=== PATIENT | female | born 1990 | race African-American/Black ===

== ENCOUNTER 2021-07-05 03:49 | Emergency (ER) | payer OTHER ==
[~2021-07-05] VITALS: Ht 157.5 cm; Wt 68.0 kg
[2021-07-05] MEDS ORDERED: ADVIL200 M3 PO (04:05)
[2021-07-05 05:08] LABS: ABSOLUTE NEUTROPHILS 15.4 thou/uL (1.4-8.2); BASOPHILS 0.3 % (0.0-2.0); EOSINOPHILS 0.5 % (0.0-3.0); HEMATOCRIT 40.3 % (37.0-47.0); HEMOGLOBIN 13.6 gm/dL (12.0-15.0); LYMPHOCYTES 8.3 % (24.0-44.0); MCH 31.3 pg (26.0-34.0); MCHC 33.6 g/dL (28.0-37.0); MCV 93.1 fL (80.0-100.0); PLATELET COUNT 238 thou/uL (150-400); POLYS 84.9 % (36.0-66.0); RBC 4.33 mil/uL (4.20-5.00); RDW 13.8 % (10.5-14.5); WBC 18.2 thou/uL (4.0-11.0)
[2021-07-05] MEDS ORDERED: APAP W/CODEINE1 TA2 PO (05:58)
[2021-07-05 06:50] VITALS: BP 124/72
== END 2021-07-05 06:40 | disposition home or self-care (01) ==
LOC: ER 03:49
PROVIDERS: Emergency Medicine
DX: O20.0 Threatened abortion (principal); Z3A.01 Less than 8 weeks gestation of pregnancy; F17.210 Nicotine dependence, cigarettes, uncomplicated; Z79.899 Other long term (current) drug therapy